=== PATIENT | male | born 1975 | race Caucasian/White ===

== ENCOUNTER 2020-04-02 06:24 | Outpatient (CLI) | payer OTHER ==
[2020-04-02 18:56] LABS: SARS-CoV-2 MS2 Positive; SARS-CoV-2 N Gene Negative; SARS-CoV-2 S Gene Negative; SARS-CoV-2 orf1ab Negative
== END 2020-04-02 06:25 | disposition home or self-care (01) ==
LOC: LABBT 06:24
PROVIDERS: ATTEND Orthopaedic Surgery Hand Surgery
DX: Z01.812 Encounter for preprocedural laboratory examination (principal); Z11.59 Encounter for screening for other viral diseases; G56.22 Lesion of ulnar nerve, left upper limb; T84.84XA Pain due to internal orthopedic prosthetic devices, implants and grafts, initial encounter
CPT/HCPCS: 87635; U0003

== ENCOUNTER 2020-04-04 09:24 | Day surgery (SDC) | payer OTHER ==
[2020-04-02 08:16] VITALS: BMI 27.3
[2020-04-04 10:44] LABS: #Basophils 0.1 thou/uL (0.0-0.2); #Eosinphils 0.1 thou/uL (0.0-0.7); #Lymphocytes 2.1 thou/uL (1.20-3.40); #Monocytes 0.7 thou/uL (0.11-0.59); #Neutrophils 6.1 thou/uL (1.40-6.50); %Basophils 1.2 % (0.0-1.0); %Eosinophils 1.6 % (0.0-10.0); %Lymphocytes 23.1 % (21.0-51.0); %Neutrophils 66.1 % (42.0-75.0); Mean Corpuscular HGB CONC 33.3 g/dL (32.0-36.0); Mean Corpuscular Hemoglobin 31.2 pg (27.0-31.0); Mean Corpuscular Volume 93.6 fL (78.0-98.0); Mean Platelet Volume 9.2 fL (7.4-10.4); Platelet Count 165 thou/uL (130-400); RBC Distribution Width 11.3 % (11.5-14.5); Red Blood Cell (RBC) Count 5.46 mill/uL (4.70-6.10); White Blood Cell (WBC) Count 9.2 thou/uL (4.8-10.8)
[2020-04-04] MEDS ORDERED: Fentanyl 100 MCG/2 ML VIAL ONE ×2 (13:08→15:38)
[2020-04-04] MEDS ORDERED: Midazolam HCl 2 mg/2 ml Vial ONE (13:08)
[2020-04-04] MEDS ORDERED: Bupivacaine PF 0.5% 30 ML VIAL ONE (13:12)
[2020-04-04] MEDS ORDERED: Bacitracin Zinc Ointment 30 gm TUBE ONE (13:12)
[2020-04-04] MEDS ORDERED: Dexamethasone 20 MG/5 ML VIAL ONE (14:11)
[2020-04-04] MEDS ORDERED: PROPOFOL 200 MG/20 ML VIAL ONE (14:11)
[2020-04-04] MEDS ORDERED: Lidocaine 1% PF 5 ML VIAL ONE (14:11)
[2020-04-04] MEDS ORDERED: Ketorolac Tromethamine 30 MG/ML VIAL ONE (14:11)
[2020-04-04] MEDS ORDERED: Ondansetron PF 4 MG/2 ML Vial ONE (14:11)
--- NOTE | 2020-04-04 19:25 | RAD ---
LEFT WRIST TWO VIEW: 04/04/20 HISTORY: Hardware removal. COMPARISON: None. FINDINGS: There appears to be a carpectomy of the trapezium. Surgical clips of the wrist. There is a needle projecting over the majority of the images. IMPRESSION: Fluoroscopy for surgical purposes. POS: HOME
--- NOTE | 2020-04-08 15:02 | OP ---
DATE OF PROCEDURE: 04/04/2020 PREOPERATIVE DIAGNOSES: 1. Possible painful deep implant, left ulnar wrist/distal ulnar styloid. 2. Left cubital tunnel, severe. FINDINGS: 1. Almost katerin flattening of the median nerve over 1.5 cm area in the center of the comanche cubital tunnel itself with early hourglass formation and stippling found at the intermuscular septum crossover point, left ulnar nerve at the elbow. 2. The plate and screw was of a construct type that we did not have here as it was placed in so with exploration, we did not strip the screws, but opted to just irrigate and close the wound after opening. TOURNIQUET TIME: 72 minutes. ESTIMATED BLOOD LOSS: 20 mL. TOURNIQUET INFLATED: 250 mmHg pressure. PROCEDURE PERFORMED: 1. Left ulnar nerve neuroplasty with transposition of subcutaneous at the left elbow. 2. Left ulnar hardware exploration, but not removal. 3. C-arm supervision. 4. Olecranon bursectomy. DESCRIPTION OF PROCEDURE: Ater successful general endotracheal anesthesia, the limb was prepped and draped. Time-out was done appropriately and the limb was exsanguinated, tourniquet inflated to 250 mmHg pressure, and then had the C-arm brought into the room. First, we made a small exploration of the area, opening the wound, removing the fascia, and then noticed that we did not have any instruments broken screw sets that would fit this rectangular shape screw construct, so we decided not to strip it in attempts. Irrigated the area and closed the fascia with a running 2-0 Vicryl, ensuring that the ulnar branch was protected and then we closed subcutaneous deep dermis with interrupted 4-0 Monocryl and the skin with 4-0 nylon interrupted mattress pattern. We then re-exsanguinated the limb, inflated the tourniquet back to 250 mmHg pressure. At this time, made a nearly midline incision, but only a 5 mm curvilinear to the ulnar side and carried this through skin and subcutaneous tissue, 4.6 cm, 10 cm distal and 12 cm proximal to the olecranon tip. Once we had done this, we ensured that the ulnar nerve was visualized, beginning as far distal as far proximal as possible, it was released. Once this was done, we saw the nerve being compressed, nearly completely flattened over 2.5-cm area within the carpal canal and early stippling and hourglass formation of the intermuscular septum crossover. We completely released the cubital tunnel, all the way past the branches to the flexor head and then followed the flexor pronator construct as well as intermuscular septum to identify the whole septum. We released the intermuscular septum from its insertion on the condyle all the way approximately 15 mm. This gave excellent freedom to the leading edge of ulnar nerve transposition. We then developed a pocket of approximately 4 mm thick fat just with the ulnar nerve was located near the comanche tunnel, but inside. Then, in a place between the flexor pronator groups dorsal edge and the medial epicondyle, we then fashioned with heavy Ethibond suture #1, the transposition. The nerve was inside of it. It was not compressed. We placed 3 mL of Celestone here, released the tourniquet, obtained hemostasis. We then closed this wound in 2 layers with a running deep dermal 3-0 Monocryl and a layer of intermittent sutures followed by a bulky dressing with the splint at 30 degrees. It must be noted that before we closed the incision, we performed a radical olecranon bursectomy, which completely removed all bursal material and spared the ulnar nerve as well. Job ID: [id number]
== END 2020-04-04 17:35 | disposition home or self-care (01) ==
LOC: SDC 09:24
PROVIDERS: ATTEND Orthopaedic Surgery Hand Surgery
PROC: 0RJ Upper Joints, Inspection (ICD-10-PCS; principal; 2020-04-04)
PROC: 0MB40ZZ Excision of Left Elbow Bursa and Ligament, Open Approach (ICD-10-PCS; principal; 2020-04-04)
PROC: 01N40ZZ Release Ulnar Nerve, Open Approach (ICD-10-PCS; principal; 2020-04-04)
DX: G56.22 Lesion of ulnar nerve, left upper limb (principal); T84.84XA Pain due to internal orthopedic prosthetic devices, implants and grafts, initial encounter; G54.0 Brachial plexus disorders; G47.30 Sleep apnea, unspecified; F41.9 Anxiety disorder, unspecified; F17.210 Nicotine dependence, cigarettes, uncomplicated; Z87.820 Personal history of traumatic brain injury; Z79.899 Other long term (current) drug therapy; Z91.018 Allergy to other foods
CPT/HCPCS: 76000; 85025; 88305; J0690; J1100; J1885; J2001; J2250; J2405; J2704; J3010; J3370; S0020

== ENCOUNTER 2023-12-08 08:08 | Outpatient (CLI) | payer OTHER ==
[2023-12-08 08:49] LABS: #Basophils 0.1 10x3/uL (0.0-0.2); #Eosinphils 0.1 10x3/uL (0.0-0.5); #Monocytes 0.7 10x3/uL (0.0-1.1); #Neutrophils 4.9 10x3/uL (1.5-8.4); %Basophils 1.2 % (0.0-2.0); %Eosinophils 1.9 % (0.0-6.0); %Lymphocytes 22.9 % (18.0-47.0); %Monocytes 8.8 % (0.0-10.0); %Neutrophils 64.9 % (40.0-75.0); Mean Corpuscular HGB CONC 35.6 g/dL (32.0-36.0); Mean Corpuscular Hemoglobin 31.1 pg (27.0-33.0); Mean Corpuscular Volume 87.4 fl (81.2-95.1); Mean Platelet Volume 10.7 fl (7.4-10.4); Platelet Count 195 10x3/uL (150-450); RBC Distribution Width 11.9 % (11.5-14.5); Red Blood Cell (RBC) Count 5.15 10x6/uL (4.32-5.72); White Blood Cell (WBC) Count 7.5 10x3/uL (3.5-10.5)
== END 2023-12-08 08:09 | disposition home or self-care (01) ==
LOC: LABBT 08:08
PROVIDERS: ATTEND Urology
DX: Z01.812 Encounter for preprocedural laboratory examination (principal); M72.0 Palmar fascial fibromatosis [Dupuytren]
CPT/HCPCS: 85025

== ENCOUNTER 2023-12-13 05:57 | Day surgery (SDC) | payer OTHER ==
[2023-12-08 08:31] VITALS: BMI 28.0
[2023-12-13] MEDS ORDERED: Bacitracin Zinc Ointment 30 gm TUBE ONE (06:46)
[2023-12-13] MEDS ORDERED: Bupivacaine PF 0.5% 30 ML VIAL ONE (06:46)
[2023-12-13] MEDS ORDERED: Midazolam HCl 2 mg/2 ml Vial ONE (06:54)
[2023-12-13] MEDS ORDERED: CEFAZOLIN 2 GM VIAL ONE (07:07)
[2023-12-13] MEDS ORDERED: Sodium Chloride 0.9% 100 ML ONE (07:07)
[2023-12-13] MEDS ORDERED: Ketamine In 0.9 % NaCl 50 MG/5 ML SYRINGE ONE (07:11)
[2023-12-13] MEDS ORDERED: fentaNYL PF 100 MCG/2 ML SYRINGE ONE (07:11)
[2023-12-13] MEDS ORDERED: PROPOFOL 60 ML ONE (07:11)
[2023-12-13] MEDS ORDERED: Collagenase Clostridium Hist. 0.9 MG VIAL IJ SCH (07:15)
[2023-12-13] MEDS ORDERED: Ketorolac Tromethamine 30 MG (1 mL) VIAL ONE (08:16)
== END 2023-12-13 08:50 | disposition home or self-care (01) ==
LOC: SDC 05:57
PROVIDERS: ATTEND Orthopaedic Surgery Hand Surgery
PROC: 3E013TZ Introduction of Destructive Agent into Subcutaneous Tissue, Percutaneous Approach (ICD-10-PCS; principal; 2023-12-13)
DX: M72.0 Palmar fascial fibromatosis [Dupuytren] (principal); G56.03 Carpal tunnel syndrome, bilateral upper limbs; G89.29 Other chronic pain; F17.200 Nicotine dependence, unspecified, uncomplicated; Z98.890 Other specified postprocedural states; Z79.899 Other long term (current) drug therapy; Z91.014 Allergy to mammalian meats
CPT/HCPCS: J0665; J0775; J1885; J2250; J2704; J3490

== ENCOUNTER 2025-08-30 09:20 | Outpatient (CLI) | payer OTHER ==
[2025-08-30 12:13] LABS: #Basophils 0.10 10x3/uL (0.0-0.2); #Eosinophils 0.15 10x3/uL (0.0-0.7); #Monocytes 0.69 10x3/uL (0.11-0.59); #Neutrophils 5.61 10x3/uL (1.40-6.50); %Basophils 1.2 % (0.0-1.0); %Eosinophils 1.8 % (0.0-10.0); %Lymphocytes 22.1 % (21.0-51.0); %Monocytes 8.2 % (0.0-10.0); %Neutrophils 66.3 % (42.0-75.0); Hematocrit 47.8 % (42.0-52.0); Hemoglobin 16.1 g/dL (14.0-18.0); Mean Corpuscular Hemoglobin 30.0 pg (27.0-31.0); Mean Corpuscular Volume 89.0 fL (78.0-98.0); Platelet Count 184 10x3/uL (130-400); Red Blood Cell (RBC) Count 5.37 mill/uL (4.70-6.10); White Blood Cell (WBC) Count 8.45 10x3/uL (4.8-10.8)
== END 2025-08-30 09:21 | disposition home or self-care (01) ==
LOC: LABBT 09:20
PROVIDERS: ATTEND Orthopaedic Surgery Hand Surgery
DX: Z01.812 Encounter for preprocedural laboratory examination (principal); M72.0 Palmar fascial fibromatosis [Dupuytren]
CPT/HCPCS: 85025

== ENCOUNTER 2025-09-03 06:33 | Day surgery (SDC) | payer OTHER ==
[2025-08-30 09:49] VITALS: BMI 28.8
[2025-09-03] MEDS ORDERED: Bacitracin Zinc Ointment 30 gm TUBE ONE (06:44)
[2025-09-03] MEDS ORDERED: CEFAZOLIN 2 GM VIAL ONE (07:40)
[2025-09-03] MEDS ORDERED: Lidocaine 1% PF 5 ML VIAL ONE (07:51)
[2025-09-03] MEDS ORDERED: PROPOFOL 20 ML ONE (07:52)
[2025-09-03] MEDS ORDERED: fentaNYL PF 100 MCG/2 ML SYRINGE ONE ×2 (07:52→08:14)
[2025-09-03] MEDS ORDERED: Ondansetron PF 4 MG/2 ML Vial ONE (08:11)
[2025-09-03] MEDS ORDERED: Ketorolac Tromethamine 30 MG (1 mL) VIAL ONE ×2 (09:47→09:48)
== END 2025-09-03 10:55 | disposition home or self-care (01) ==
LOC: SDC 06:33
PROVIDERS: ATTEND Orthopaedic Surgery Hand Surgery
PROC: 01S60ZZ Reposition Radial Nerve, Open Approach (ICD-10-PCS; principal; 2025-09-03)
PROC: 0JNK0ZZ Release Left Hand Subcutaneous Tissue and Fascia, Open Approach (ICD-10-PCS; principal; 2025-09-03)
DX: M72.0 Palmar fascial fibromatosis [Dupuytren] (principal); F17.200 Nicotine dependence, unspecified, uncomplicated; Z98.890 Other specified postprocedural states; Z91.014 Allergy to mammalian meats
CPT/HCPCS: 88304; A6223; J0665; J1100; J1885; J2405; J2704; J3010